=== PATIENT | male | born 1940 | race Caucasian/White ===

== ENCOUNTER 2020-01-10 18:47 | Emergency (ER) | payer MEDICARE ==
[~2020-01-10] VITALS: Ht 190.5 cm; Wt 107.5 kg
[~2020-01-10 18:47] MED LIST: ASPI-586 PO; ATOR40TA70; FINA5TAB6
[2020-01-10 19:04] VITALS: BP 143/84
--- NOTE | 2020-01-10 19:14 | ED General ---
General Chief Complaint: General Problems/Pain Stated Complaint: PREVIOUS INJURY;NEEDS TETANUS SHOT Source of Information: Patient Exam Limitations: No Limitations History of Present Illness Date Seen by Provider: Jan 10, 2020 Time Seen by Provider: 19:08 Initial Comments To ER with need for tetanus shot. He is employed as a dentist, one of the dental burrs slipped and punctured the volar ulnar side of the left forearm.This had been in a patients mouth. He squeezed the wound, then rinsed it under the sink then dumped alcohol then iodine on it. He states this has worked well over the years for him for infection prevention following puncture wounds at work. He is not interested in antibiotic treatment at this time. However he is out of date on his tetanus shot. Timing/Duration: 4-6 Hours Severity: Mild Associated Systoms: Denies Symptoms Allergies and Home Medications Allergies Coded Allergies: codeine (Unverified Allergy, Unknown, 10/30/15) Home Medications Amoxicillin/Potassium Clav 1 Each Tablet, 1 EACH PO BID Prescribed by: ARELY THIBODEAUX on 01/10/201914 Patient Home Medication List Home Medication List Reviewed: Yes Review of Systems Review of Systems Constitutional: see HPI EENTM: see HPI Respiratory: no symptoms reported Cardiovascular: no symptoms reported Genitourinary: no symptoms reported Musculoskeletal: no symptoms reported Skin: no symptoms reported Psychiatric/Neurological: No Symptoms Reported Hematologic/Lymphatic: No Symptoms Reported Past [place]-Ysleiw-Plgbyi Hx Patient Social History Recent Foreign Travel: No Contact w/Someone Who Travel: No Recent Hopitalizations: No Past Medical History Orthopedic Reproductive Disorders: No Sexually Transmitted Disease: No Physical Exam Vital Signs Vital Signs - First Documented 01/10/20 19:04 Temp 36.6 Pulse 67 Resp 18 B/P (MAP) 143/84 (103) Pulse Ox 99 Capillary Refill : Height, Weight, BMI Height: 6'2" Weight: 210lbs. oz. 95.438301rr; BMI Method:Stated General Appearance: No Apparent Distress, WD/WN Eyes: Bilateral Eye Normal Inspection, Bilateral Eye PERRL, Bilateral Eye EOMI Respiratory: No Accessory Muscle Use, No Respiratory Distress Extremity: Normal Capillary Refill, Normal Inspection, Other (Small puncture wound to the volar ulnar left forearm without surrounding erythema or ecchymosis) Neurologic/Psychiatric: Alert, Oriented x3 Skin: Normal Color, Warm/Dry Progress/Results/Core Measures Suspected Sepsis SIRS Temperature: Pulse: Respiratory Rate: Blood Pressure / Mean: Results/Orders My Orders Orders - ARELY THIBODEAUX APRN Dipht,Pertuss(Acell),Tet Adult (Boostrix (01/10/20 19:15) Vital Signs/I&O 01/10/20 19:04 Temp 36.6 Pulse 67 Resp 18 B/P (MAP) 143/84 (103) Pulse Ox 99 Capillary Refill : Departure Impression Primary Impression: Tetanus toxoid vaccination administered at current visit Additional Impression: Puncture wound Disposition: HOME, SELF-CARE Condition: Stable Departure-Patient Inst. Decision time for Depature: 19:12 Referrals: NO,LOCAL PHYSICIAN (PCP/Family) Primary Care Physician Patient Instructions: Tdap Vaccine Add. Discharge Instructions: 1. Return to ER for any concerns 2 Start the antibiotics if you notice ANY redness to this area All discharge instructions reviewed with patient and/or family. Voiced understanding. Scripts Amoxicillin/Potassium Clav (Augmentin 875-125 Tablet) 1 Each Tablet 1 EACH PO BID, #14 TAB 0 Refills Prov: ARELY THIBODEAUX APRN 01/10/20 ARELY THIBODEAUX APRN Jan 10, 2020 19:14
[2020-01-10] MEDS ORDERED: TETANUS,DIPTH,PERTUSS P/F (BOOSTRIX) 0.5 ML VIAL IM ONE (19:15)
[2020-01-10] MEDS ORDERED: AMOX-358 PO (19:15)
== END 2020-01-10 19:20 | disposition home or self-care (01) ==
LOC: EDUNIT# 18:47 → ER 18:52
DX: S51.832A Puncture wound without foreign body of left forearm, initial encounter (principal); Z23 Encounter for immunization; Z88.5 Allergy status to narcotic agent; W26.8XXA Contact with other sharp object(s), not elsewhere classified, initial encounter
CPT/HCPCS: 90715; 99284

== ENCOUNTER 2021-06-11 11:20 | Outpatient (RCR) | payer MEDICARE ==
[~2021-06-11 11:20] MED LIST changes: +AMOX-358 PO
== END 2021-06-23 | disposition home or self-care (01) ==
LOC: ONC 11:20
PROVIDERS: ATTEND Internal Medicine
DX: C61 Malignant neoplasm of prostate (principal)
CPT/HCPCS: 99214

== ENCOUNTER 2021-07-02 11:43 | Outpatient (RCR) | payer MEDICARE | END 2021-07-24 | disposition home or self-care (01) | LOC: ONC 11:43 | PROVIDERS: ATTEND Internal Medicine | DX: C61 Malignant neoplasm of prostate (principal) | CPT/HCPCS: 99213 ==

== ENCOUNTER 2021-08-20 10:30 | Outpatient (RCR) | payer MEDICARE | END 2021-08-23 | disposition home or self-care (01) | LOC: ONC 10:30 | PROVIDERS: ATTEND Internal Medicine | DX: C61 Malignant neoplasm of prostate (principal) | CPT/HCPCS: 99213 ==

== ENCOUNTER 2021-11-12 12:22 | Outpatient (RCR) | payer MEDICARE | END 2021-11-23 | disposition home or self-care (01) | LOC: ONC 12:22 | PROVIDERS: ATTEND Internal Medicine | DX: C61 Malignant neoplasm of prostate (principal) | CPT/HCPCS: 99213 ==

== ENCOUNTER 2022-03-04 12:26 | Outpatient (RCR) | payer MEDICARE | END 2022-03-26 | disposition home or self-care (01) | LOC: ONC 12:26 | PROVIDERS: ATTEND Internal Medicine | DX: C61 Malignant neoplasm of prostate (principal) | CPT/HCPCS: 99213 ==

== ENCOUNTER 2022-12-31 14:53 | Outpatient (RCR) | payer MEDICARE | END 2023-01-23 | disposition home or self-care (01) | LOC: ONC 14:53 | PROVIDERS: ATTEND Internal Medicine Hematology & Oncology | DX: C61 Malignant neoplasm of prostate (principal) ==